=== PATIENT | female | born 1945 | race Hispanic/Latino ===

== ENCOUNTER 2020-02-13 09:33 | Outpatient (RCR) | payer MEDICARE | END 2020-02-15 | LOC: PT 09:33 | PROVIDERS: ATTEND Internal Medicine | DX: M54.5 Low back pain (principal); M47.896 Other spondylosis, lumbar region; M19.90 Unspecified osteoarthritis, unspecified site ==

== ENCOUNTER 2020-03-15 08:43 | Outpatient (RCR) | payer MEDICARE | END 2020-03-16 | LOC: PT 08:43 | PROVIDERS: ATTEND Internal Medicine | DX: M54.5 Low back pain (principal); M47.896 Other spondylosis, lumbar region; M47.816 Spondylosis without myelopathy or radiculopathy, lumbar region | CPT/HCPCS: 97139 ==